=== PATIENT | male | born 1980 | race Two or more races ===

== ENCOUNTER 2018-07-07 16:56 | Inpatient (IN) | payer MEDICAID ==
[~2018-07-07] VITALS: Ht 172.7 cm; Wt 106.6 kg
[2018-07-07 19:08] VITALS: BP 148/91
--- NOTE | 2018-07-07 19:20 | NUR ---
PATIENT ARRIVAL TO UNIT , VITAL SIGNS WITHIN BASELINE. WILL ENDORSE TO ONCOMING NURSE. TERESSA Rosario RN
--- NOTE | 2018-07-07 19:30 | NUR ---
RN NOTES RECEIVED PT AWAKE ON BED A/OX4, DIRECT ADMIT FROM MARCELLO, PT. CAME @ 1850, NEEDS TO BE ADMITTED, SR ON TELE MONITOR [id number], ADMITTED INSTRUCTION WAS RENDERED, CALL LIGHT WITHIN REACH, [id number], CONTINUE TO MONITOR
[2018-07-07] MEDS ORDERED: METF-440 PO (19:58)
[2018-07-07 20:00] VITALS: BP 132/75
[2018-07-07] MEDS ORDERED: METRONIDAZOLE 500MG/ NS 100ML 500 MG in PREMIX 1 EA IV SCH (21:00)
[2018-07-07] MEDS ORDERED: Z GUARD REMEDY 2 OZ OINT TP PRN (21:00)
[2018-07-07] MEDS ORDERED: MAGNESIUM HYDROXIDE 30 ML UDC PO PRN (21:00)
[2018-07-07] MEDS ORDERED: ZOLPIDEM TARTRATE 5 MG TABLET PO PRN (21:00)
[2018-07-07] MEDS ORDERED: MAG HYDROX/AL HYDROX/SIMETH 30 ML UDC PO PRN (21:00)
[2018-07-07] MEDS ORDERED: HYDROCODONE/APAP 5/325MG 1 EACH TABLET PO PRN (21:00)
[2018-07-07] MEDS ORDERED: ONDANSETRON HCL/PF 4 MG/2 ML VIAL IVP PRN (21:00)
[2018-07-07] MEDS ORDERED: METRONIDAZOLE 500MG/ NS 100ML 0 ML IV ONE (21:25)
[2018-07-07] MEDS ORDERED: PIPERACILLIN /TAZOBACTAM 3.375 G VIAL IV ONE (23:53)
[2018-07-08] VITALS: BP 134/70
[2018-07-08] MEDS ORDERED: PIPERACILLIN /TAZOBACTAM 3.375 G in IV D5W 50 ML IV SCH ×2
[2018-07-08] MEDS ORDERED: ZOSYN IVPB 3.375 G in IV D5W 50ml IV ONE ×2
[2018-07-08] MEDS: BLOOD SUGAR DIAGNOSTIC 1 EACH STRIP IN SCH ×5 (00:25→21:54)
[2018-07-08 04:00] VITALS: BP 129/72
[2018-07-08] MEDS: ACETAMINOPHEN 325 MG TABLET PO PRN ×2 (06:39→22:22)
--- NOTE | 2018-07-08 06:42 | NUR ---
RN NOTES COMPLAINED OF ARM PAIN AND ASKING FOR IBUPROFEN- TYLENOL 650MG PO GIVEN ORDERED, V/S STABLE, PT. NEEDS ATTENDED
[2018-07-08 07:23] LABS: CALCIUM, SERUM 8.3 mg/dL (8.5-10.1); CREATININE 0.8 mg/dL (0.6-1.3); MAGNESIUM 1.9 mg/dL (1.8-2.4); PHOSPHORUS 2.8 mg/dL (2.5-4.9); POTASSIUM 3.6 mmol/L (3.5-5.1)
[2018-07-08 07:40] LABS: BASOPHILS % (AUTO) 0.5 % (0.0-2.0); EOSINOPHILS % (AUTO) 1.4 % (0.0-6.0); HEMATOCRIT 38 % (39-51); HEMOGLOBIN 12.7 g/dL (13.5-17.5); LYMPHOCYTES # (AUTO) 1.4 /CMM (0.8-4.8); LYMPHOCYTES % (AUTO) 16.3 % (20.0-44.0); MEAN CORPUSCULAR HGB CONC 34 g/dl (31.0-36.0); MEAN CORPUSCULAR VOLUME 95 fL (80-96); MONOCYTES # (AUTO) 0.7 /CMM (0.1-1.30); MONOCYTES % (AUTO) 7.7 % (2.0-12.0); NEUTROPHILS # (AUTO) 6.2 /CMM (1.8-8.9); NEUTROPHILS % (AUTO) 74.1 % (43.0-81.0); PLATELET COUNT (AUTO) 223 /CMM (150-450); RED BLOOD CELL COUNT(AUTO) 3.98 MIL/uL (4.5-6.0); WHITE BLOOD COUNT (AUTO) 8.4 K/uL (4.3-11.0)
[2018-07-08 08:00] VITALS: BP 121/76
--- NOTE | 2018-07-08 08:00 | NUR ---
MS RN RECEIVED ON BED, AWAKE, ALERT,ORIENTED X4,NOT IN ANY FORM OF DISTRESS, RESPIRATIONS EVEN AND UNLABORED,NO SOB NOTED, LUNGS ARE CLEAR,ABDOMEN SOFT,POSITIVE BOWEL SOUNDS,DENIES PAIN AT THIS TIME.
[2018-07-08] MEDS: PANTOPRAZOLE 40 MG TABLET.DR PO SCH (08:50)
[2018-07-08] MEDS: PIPERACILLIN /TAZOBACTAM 3.375 G in IV D5W 100 ML IV SCH ×3 (08:50→23:28)
[2018-07-08] MEDS ORDERED: CEFTRIAXONE 1 G in IV D5W 50 ML IV SCH (09:00)
--- NOTE | 2018-07-08 09:15 | NUR ---
MS SEGURA breakfast served,due meds given,tolerated well.
[2018-07-08] MEDS ORDERED: DEXTROSE 50%-WATER 50 ML DISP.SYRIN IV PRN (10:30)
--- NOTE | 2018-07-08 12:30 | NUR ---
ms rn was seen by melba zimmerman/ orders made and carried out.
[2018-07-08 16:00] VITALS: BP 140/81
--- NOTE | 2018-07-08 17:38 | NUR ---
ms rn on bed, no distress noted.
--- NOTE | 2018-07-08 19:10 | NUR ---
Patient was transferred from [facility] s/p extubation. Met with patient, states he lives alone locally in an apartment.He is ambulatory and independent with adl's. 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 He plan to return home upon discharge, his friend will provide ride when discharge Addendum: 07/08/18 at 2300 by JONATHAN KEENAN RN Amended: Links added.
--- NOTE | 2018-07-08 19:30 | NUR ---
RN OPENING NOTES: RECEIVED PATIENT RESTING COMFORTABLY IN BED, WITH O2 @2L/MIN. AWAKE, ALERT AND ORIENTED X4, NO SOB, NO COMPLAIN OF PAIN. CALL LIGHT WITHIN REACH.
[2018-07-08 20:00] VITALS: BP 139/81
[2018-07-08] MEDS: INSULIN REGULAR, HUMAN 100 UNIT/ML 3 ML VIAL SQ PRN (21:54)
[2018-07-08 23:07] VITALS: BP 139/81
--- NOTE | 2018-07-09 06:51 | NUR ---
MS RN CLOSING NOTES: PATIENT'S HEMODYNAMICS AND RESPIRATORY STATUS ARE STABLE. V/S WNL. AFEBRILE. RESTED THROUGHOUT THE NIGHT. BLOOD GLUCOSE THIS MORNING IS 116, NO INSULIN COVERAGE GIVEN. CALL LIGHT WITHIN REACH. NO OVERNIGHT ACUTE EVENTS.
[2018-07-09] MEDS: BLOOD SUGAR DIAGNOSTIC 1 EACH STRIP IN SCH ×2 (07:15→11:25)
[2018-07-09 07:35] LABS: BASOPHILS % (AUTO) 0.5 % (0.0-2.0); EOSINOPHILS % (AUTO) 1.8 % (0.0-6.0); HEMATOCRIT 40 % (39-51); HEMOGLOBIN 13.6 g/dL (13.5-17.5); LYMPHOCYTES # (AUTO) 1.6 /CMM (0.8-4.8); LYMPHOCYTES % (AUTO) 21.3 % (20.0-44.0); MEAN CORPUSCULAR HGB CONC 34 g/dl (31.0-36.0); MEAN CORPUSCULAR VOLUME 94 fL (80-96); MONOCYTES # (AUTO) 0.6 /CMM (0.1-1.30); MONOCYTES % (AUTO) 8.7 % (2.0-12.0); NEUTROPHILS % (AUTO) 67.7 % (43.0-81.0); PLATELET COUNT (AUTO) 224 /CMM (150-450); WHITE BLOOD COUNT (AUTO) 7.4 K/uL (4.3-11.0)
[2018-07-09 07:42] LABS: CALCIUM, SERUM 8.7 mg/dL (8.5-10.1); CREATININE 0.8 mg/dL (0.6-1.3); POTASSIUM 3.8 mmol/L (3.5-5.1)
--- NOTE | 2018-07-09 07:42 | NUR ---
MS RN OPENING NOTE RECEIVED PATIENT IN BED. ALERT ORIENTED X3. ON 2L O2 VIA NC, TOLERATING WELL. IN NO APPARENT DISTRESS OR DISCOMFORT AT THIS TIME. RESPIRATIONS EVEN AND UNLABORED. DENIES PAIN AND SOB. PATIENT IS ABLE TO COMMUNICATE NEEDS. LEFT AC 18G IVC SL, PATENT AND INTACT, RIGHT AC 18G IVC WITH FLUIDS RUNNING AT TKO. PATIENT KEPT CLEAN AND COMFORTABLE. ALL NEEDS ATTENDED, SAFETY MEASURES IN PLACE, BED IN LOW LOCKED POSITION, SIDE RAILS UP X2, CALL LIGHT WITHIN EASY REACH. WILL CONTINUE TO MONITOR.
--- NOTE | 2018-07-09 07:44 | NUR ---
MS SEGURA OPENING NOTE RECEIVED PATIENT IN BED. SLEEPING, EASILY AROUSED WITH VERBAL STIMULI. ORIENTED X4. ON ROOM AIR, TOLERATING WELL. IN NO APPARENT DISTRESS OR DISCOMFORT AT THIS TIME. RESPIRATIONS EVEN AND UNLABORED. DENIES PAIN AND SOB. PATIENT IS ABLE TO COMMUNICATE NEEDS. LEFT HAND 22G IVC WITH FLUIDS RUNNING AT 75ML/HR, PATENT AND INTACT. PATIENT KEPT CLEAN AND COMFORTABLE. ALL NEEDS ATTENDED, SAFETY MEASURES IN PLACE, BED IN LOW LOCKED POSITION, SIDE RAILS UP X2, CALL LIGHT WITHIN EASY REACH. WILL CONTINUE TO MONITOR. Addendum: 07/09/18 at 1821 by DWAIN PACE RN WRONG PATIENT'S NOTE. DISREGARD.
[2018-07-09 08:00] VITALS: BP 149/76
[2018-07-09] MEDS: PIPERACILLIN /TAZOBACTAM 3.375 G in IV D5W 100 ML IV SCH (08:15)
[2018-07-09] MEDS: PANTOPRAZOLE 40 MG TABLET.DR PO SCH (08:16)
[2018-07-09] MEDS ORDERED: METF-441 PO (08:17)
[2018-07-09] MEDS: INSULIN REGULAR, HUMAN 100 UNIT/ML 3 ML VIAL SQ PRN (11:30)
--- NOTE | 2018-07-09 12:00 | NUR ---
DIETARY CONSULTATION ORDERED DUE TO PATIENT'S NEWLY DIAGNOSED DIABETES. PATIENT TO BE SEEN BY DIETITIAN PRIOR TO DISCHARGE. MULTIPLE CONTACTS MADE TO GET A HOLD OF DIETITIAN BUT WAS UNSUCCESSFUL. CALLED DIETARY DEPARTMENT REGARDING THIS MATTER. PATIENT WAS PROVIDED WITH HANDOUTS TO AID WITH PORTION CONTROL AND COMPLY WITH CONTROLLED CARBOHYDRATE DIET. PATIENT WAS ENCOURAGED TO CALL IN ON THURSDAY TO SPEAK TO DIETITIAN IF FURTHER QUESTIONS ARISE.
--- NOTE | 2018-07-09 14:30 | NUR ---
MS HOSIERY LOOPER NOTE RECEIVED ORDER FOR DISCHARGE. PATIENT IS BEING DISCHARGED HOME UNDER SELF CARE. PATIENT IS STABLE, VITAL SIGNS STABLE. ALERT ORIENTED X4. ON ROOM AIR, TOLERATING WELL. IN NO APPARENT DISTRESS OR DISCOMFORT AT THIS TIME. RESPIRATIONS EVEN AND UNLABORED, DENIES PAIN AND SOB. DISCHARGE PAPERWORK PREPARED VIA [employer]. EDUCATION PROVIDED REGARDING DISEASE PROCESS, MANAGEMENT, DIET, MEDICATIONS AND FOLLOW UP CARE. PATIENT VERBALIZED UNDERSTANDING OF TEACHINGS. BELONGINGS CHECKED AND ACCOUNTED FOR. ALL PAPERS SIGNED, COPIES MADE PLACED IN CHART. WRITTEN EDUCATIONAL MATERIAL PROVIDED IN DISCHARGE POCKET. PATIENT DOES NOT QUALIFY FOR PNEUMONIA VACCINE, FLU VACCINE IS OUT OF SEASON. PATIENT REFUSED SKIN PHOTOS, PER PATIENT HIS SKIN IS GOOD. PRESCRIPTION GIVEN TO THE PATIENT FOR NEW MEDICATION. BILATERAL UPPER EXTREMITY IV CANALS DISCONTINUED, TIPS INTACT. ID BAND REMOVED. PATIENT WAS PICKED UP BY HIS COUSIN. PATIENT LEFT THE UNIT VIA WHEELCHAIR, ACCOMPANIED BY EDDIE RICHTER AT 1430.
== END 2018-07-09 14:50 | disposition home or self-care (01) | DRG 133 ==
LOC: TELE 18:28 → MED 07-08 08:52
PROVIDERS: ADMIT Nurse Practitioner Acute Care; ATTEND Nurse Practitioner Acute Care
DX: J96.01 Acute respiratory failure with hypoxia (principal); E87.2 Acidosis; E11.65 Type 2 diabetes mellitus with hyperglycemia; F10.129 Alcohol abuse with intoxication, unspecified; E78.5 Hyperlipidemia, unspecified; E66.9 Obesity, unspecified; Z68.35 Body mass index [BMI] 35.0-35.9, adult; Z87.891 Personal history of nicotine dependence; Y90.9 Presence of alcohol in blood, level not specified; Z71.3 Dietary counseling and surveillance; F19.10 Other psychoactive substance abuse, uncomplicated
CPT/HCPCS: 36415; 71045-TC; 80048-TC; 80061-TC; 82962-TC; 83735-TC; 84100-TC; 85025-TC; 87081-TC; A4216; G0378; J0696; J1815; J2543; J3490; J7050; J7060